=== PATIENT | female | born 1970 | race Caucasian/White ===

== ENCOUNTER 2019-02-10 07:41 | Day surgery (SDC) | payer OTHER ==
[~2019-02-10] VITALS: Ht 162.6 cm; Wt 104.8 kg
[2019-02-10 08:05] VITALS: BP 122/85
[2019-02-10 14:01] VITALS: BP 115/76
== END 2019-02-10 11:30 | disposition home or self-care (01) ==
LOC: DS 07:41 → GI 09:30 → OR 09:30 → DS 11:30
PROVIDERS: Internal Medicine Gastroenterology
PROC: 0DJD8ZZ Inspection of Lower Intestinal Tract, Via Natural or Artificial Opening Endoscopic (ICD-10-PCS; principal; 2019-02-10 09:30)
DX: Z12.11 Encounter for screening for malignant neoplasm of colon (principal); K59.00 Constipation, unspecified; K57.30 Diverticulosis of large intestine without perforation or abscess without bleeding; K64.8 Other hemorrhoids
CPT/HCPCS: 45378; J1200; J1610; J2250; J2310; J3010; J3490